=== PATIENT | male | born 1980 | race American Indian/Alaskan Native ===

== ENCOUNTER 2019-04-25 07:49 | Emergency (ER) | payer OTHER ==
[2019-04-25 07:54] VITALS: BP 178/92
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
== END 2019-04-25 10:07 | disposition home or self-care (01) ==
LOC: ED 07:49
DX: M79.644 Pain in right finger(s) (principal); M79.645 Pain in left finger(s); Z79.899 Other long term (current) drug therapy
CPT/HCPCS: 99282